=== PATIENT | female | born 1995 ===

== ENCOUNTER → 2018-10-05 | Outpatient (CLI) | payer OTHER, BC ==
[~2018-10-05] MED LIST: ETHI1TAB16 PO; MEDR10TA57 PO; NORG1TAB40
== END ==
LOC: LAB 14:51
PROVIDERS: ATTEND Student in an Organized Health Care Education/Training Program
DX: N93.9 Abnormal uterine and vaginal bleeding, unspecified (principal)
CPT/HCPCS: 87491; 87591

== ENCOUNTER → 2019-01-13 | Outpatient (CLI) | payer BC | LOC: LAB 08:35 | PROVIDERS: ATTEND Student in an Organized Health Care Education/Training Program | DX: R53.83 Other fatigue (principal); N89.8 Other specified noninflammatory disorders of vagina | CPT/HCPCS: 36415; 84443; 86592 ==